=== PATIENT | male | born 1960 | race Caucasian/White ===

== ENCOUNTER 2019-01-16 11:40 | Emergency (ER) | payer MEDICAID ==
[~2019-01-16] VITALS: Ht 185.4 cm; Wt 83.0 kg
[2019-01-16 12:58] VITALS: BP 156/89; Ht 185.4 cm; Wt 83.0 kg
== END 2019-01-16 14:36 | disposition left against medical advice (07) ==
LOC: ED 11:40
DX: Z53.21 Procedure and treatment not carried out due to patient leaving prior to being seen by health care provider (principal)

== ENCOUNTER 2019-06-14 19:44 | Emergency (ER) | payer MEDICAID ==
[~2019-06-14] VITALS: Ht 182.9 cm; Wt 90.7 kg
[2019-06-14 21:30] VITALS: BP 117/73
== END 2019-06-14 21:30 | disposition home or self-care (01) ==
LOC: ED 19:44
DX: R07.89 Other chest pain (principal)
CPT/HCPCS: G0480; J7030

== ENCOUNTER 2019-06-15 02:21 | Emergency (ER) | payer MEDICAID ==
[~2019-06-15] VITALS: Ht 180.3 cm; Wt 95.3 kg
[2019-06-15 02:31] VITALS: Ht 180.3 cm; Wt 95.3 kg
[2019-06-15 03:44] VITALS: BP 122/74
== END 2019-06-15 03:44 | disposition home or self-care (01) ==
LOC: ED 02:21
DX: R07.89 Other chest pain (principal)

== ENCOUNTER 2019-06-18 18:38 | Emergency (ER) | payer MEDICAID | END 2019-06-18 18:58 | disposition left against medical advice (07) | LOC: ED 18:38 | DX: Z53.21 Procedure and treatment not carried out due to patient leaving prior to being seen by health care provider (principal) ==

== ENCOUNTER 2019-06-19 17:42 | Emergency (ER) | payer MEDICAID ==
[~2019-06-19] VITALS: Ht 182.9 cm; Wt 80.7 kg
[2019-06-19 17:54] VITALS: Ht 182.9 cm; Wt 80.7 kg
[2019-06-19 18:55] LABS: BASOPHIL % 0.5 % (0-2); PLATELET COUNT 333 x10^3mcL (130-400); RED CELL DISTRIBUTION WIDTH 13.8 % (11.5-14.5)
[2019-06-19 18:58] LABS: CARBON DIOXIDE 26.3 mmol/L (21-32); CHLORIDE SERUM 104 mmol/L (98-107); CREATININE SERUM 0.9 mg/dL (0.7-1.3); GFR1 > 60 mL/min; GLUCOSE SERUM 95 mg/dL (74-106); POTASSIUM SERUM 3.8 mmol/L (3.5-5.1); SODIUM SERUM 140 mmol/L (136-145)
[2019-06-19 19:03] LABS: ALKALINE PHOSPHATASE 115 U/L (46-116); ALT/SGPT 28 U/L (16-63); AST/SGOT 17 U/L (15-37); BILIRUBIN TOTAL 0.3 mg/dL (0.20-1.00); TOTAL PROTEIN, SERUM 6.5 g/dL (6.4-8.2)
[2019-06-19 19:04] LABS: ALBUMIN 3.3 g/dL (3.4-5.0)
[2019-06-19 21:26] VITALS: BP 152/99
== END 2019-06-19 21:26 | disposition home or self-care (01) ==
LOC: ED 17:42
PROVIDERS: Emergency Medicine
DX: R07.89 Other chest pain (principal)
CPT/HCPCS: 83880; Q0092